=== PATIENT | male | born 1950 | race Caucasian/White ===

== ENCOUNTER 2018-02-11 17:47 | Emergency (ER) | payer MEDICARE, OTHER ==
[~2018-02-11] VITALS: Ht 190.5 cm; Wt 271.8 kg
[2018-02-11 17:51] VITALS: BP 101/65
[2018-02-11] MEDS ORDERED: LIDOcaine 1.5% w/epinephrine 1:200,000 5ml ampul IJ ONE (20:30)
[2018-02-11] MEDS ORDERED: TETanus/Pertussis (Acell)/Diphther VAC/PF (Tdap-Adult) 0.5ml syringe IM ONE (20:30)
[2018-02-11] MEDS ORDERED: LIDOcaine 1% w/EPI 1:100,000 30ml vial (MDV) IJ ONE (20:40)
[2018-02-11] MEDS ORDERED: clindamycin 150mg capsule PO ONE (21:25)
[2018-02-11] MEDS ORDERED: CLIN150C8 PO (21:26)
== END 2018-02-11 22:13 | disposition home or self-care (01) ==
LOC: ER 17:47
DX: L02.31 Cutaneous abscess of buttock (principal)
CPT/HCPCS: 10060; 90471; 90715; 99283; J3490